=== PATIENT | male | born 1995 | race Caucasian/White ===

== ENCOUNTER → 2021-11-22 17:53 | Outpatient (CLI) | payer OTHER, SELFPAY ==
--- NOTE | 2021-11-22 17:55 | DI.RAD.S_ITS ---
PROCEDURE: XR CHEST 2V INDICATIONS: pain on inspiration TECHNIQUE: 2 views of the chest were acquired. COMPARISON: None. FINDINGS: Surgical changes and devices: None. Lungs and pleura: Lungs are clear. No pleural effusions. Moderate-sized right-sided pneumothorax measuring up to 4.6 centimeters Mediastinum: Mediastinal contours are normal. There is slight leftward deviation mediastinum suggesting pneumothorax may be under tension. Heart size is normal. Bones and chest wall: No suspicious bony abnormalities. Soft tissues appear unremarkable. IMPRESSION: Moderate-sized right-sided pneumothorax with possible tension. Findings discussed with Dr. Parra could the emergency department. Dr. Parra contacted the patient directly and patient will proceed immediately to the emergency department for clinical evaluation. Dictated by: Rox Graff MD, PhD on 11/22/2021 at 18:57 Approved by: Rox Graff MD, PhD on 11/22/2021 at 19:09
== END ==
PROVIDERS: PCP Internal Medicine; Referring Provider Physician Assistant; Visit Provider Physician Assistant
DX: J93.9 Pneumothorax, unspecified (principal); R07.1 Chest pain on breathing
CPT/HCPCS: 71046

== ENCOUNTER 2021-11-22 19:17 | Inpatient (IN) | payer OTHER, SELFPAY ==
[2021-11-22] VITALS (15 sets, daily range): BP systolic 100–131; BP diastolic 50–85; PULSE 73–99; RESP 16–35; TEMP 36.9; O2SAT 96–100; BMI 18.9; BMI 19.1
--- NOTE | 2021-11-22 19:27 | ED_ITS ---
HPI - SOB/Dyspnea General Chief Complaint: Upper Respiratory Symptoms Stated Complaint: Collapsed Lung Time Seen by Provider: 11/22/21 19:24 Source: patient Mode of arrival: Ambulatory History of Present Illness HPI Narrative: Patient is a 26-year-old male who presents with spontaneous pneumothorax on the right sent from the walk-in clinic. 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 He had a chest x-ray done at walk-in clinic which did show moderate pneumothorax with tension. He has some pain but no significant shortness of breath his oxygen is at 99% here in the ED. He is not tachycardic. He denies any smoking or vaping. Related Data Home Medications Medication Instructions Recorded Confirmed No Known Home Medications 11/22/21 11/22/21 Allergies Allergy/AdvReac Type Severity Reaction Status Date / Time No Known Drug Allergies Allergy Verified 11/22/21 19:25 Review of Systems Review of Systems Narrative: GENERAL: Denies chills, fatigue, malaise, fever, sweats, travel HEENT: Denies sinus pain, ear pain, sore throat, difficulty swallowing, neck pain RESPIRATORY: See HPI CARDIOVASCULAR: Denies chest pain, palpitations, orthopnea, edema GASTROINTESTINAL: Denies nausea, vomiting, abdominal pain, diarrhea, constipation, melena. : Denies dysuria, frequency, incontinence, hematuria, urinary retention, flank pain. MUSCULOSKELETAL: Denies weakness, joint pain, or bony pain SKIN: No rash, no erythema, no pruritus NEUROLOGIC: Denies weakness, dizziness, headache, numbness, change in speech, confusion PSYCHIATRIC: No concerning psychosocial issues. 12 point review of systems is negative except for those stated above and HPI Patient History Social History Smoking Status: Never smoker Smoking Status: Never smoker Substance Use Type: does not use Exam Initial Vital Signs Initial Vital Signs: Vital Signs Pulse Rate 93 H 11/22/21 19:25 Respiratory Rate 18 11/22/21 19:25 Blood Pressure 128/85 11/22/21 19:25 Pulse Oximetry 96 11/22/21 19:25 Oxygen Delivery Method 11/22/21 19:25 GENERAL: Well-appearing 26-year-old male and in no acute distress. HEENT: Head atraumatic,EOMI, pupils reactive, face symmetric, moist mucous membranes CARDIOVASCULAR: Regular rate and rhythm without murmurs, rubs or gallops. RESPIRATORY: Decreased breath sounds on right no respiratory distress ABDOMEN: Soft, nontender. Normoactive bowel sounds all 4 quadrants. No guarding or rebound. EXTREMITIES: Normal range of motion, no clubbing or edema. Neurovascularly intact NEUROLOGICAL: Alert and oriented x4.Normal gait and speech. SKIN: Warm, dry, no laceration, no petechiae, no rashes or lesions. Procedures Chest Tube Chest Tube 1: Chest Tube Location: right and anterior axillary line Chest Tube Prep: Yes sterile drapes applied and other Local Anesthetic: lidocaine 1% Amount of anesthesia used (mL): 6 Incision Made With: #10 blade Post Procedure: sutured to skin and sterile dressing applied Tube Drainage: none Post Procedure CXR?: Yes Patient Tolerated Procedure: Yes Course Orders Ordered: ED Orders 11/22/21 19:28 COVID19 -Nasal RAPID/Pre-Proc Stat 11/22/21 19:34 CBC Auto Diff [Complete Blood Count AUTO DIFF] Stat CMP [Comprehensive Metabolic Panel] Stat 11/22/21 20:11 Chest [XR chest 1V] Stat Discontinued Medications Lidocaine HCl (Lidocaine 1% (Pf)) 4 ml INJ NOW ONE Stop: 11/22/21 20:20 Last Admin: 11/22/21 20:00 Dose: 4 ml Documented By: ERWIN Morphine Sulfate (Morphine 2 Mg/Ml Inj) 2 mg IV NOW ONE Stop: 11/22/21 20:19 Last Admin: 11/22/21 20:27 Dose: 2 mg Documented By: RL Propofol (Propofol 200 Mg/20 Ml Vial) 60 mg 1 mg/kg (60 mg) IV NOW ONE Stop: 11/22/21 19:29 Last Admin: 11/22/21 19:59 Dose: 60 mg Documented By: RL Vital Signs Vital signs: Vital Signs - 8 hr 11/22/21 19:25 11/22/21 19:25 11/22/21 19:30 Pulse Rate 93 H 92 H 98 H Respiratory Rate 18 17 Blood Pressure 128/85 Pulse Oximetry 96 99 97 Oxygen Delivery Method Room Air 11/22/21 19:35 11/22/21 19:40 11/22/21 19:45 Pulse Rate 97 H 94 H 99 H Respiratory Rate 23 16 35 H Blood Pressure Pulse Oximetry 97 99 99 Oxygen Delivery Method 11/22/21 19:50 11/22/21 19:51 11/22/21 19:51 Pulse Rate 94 H 98 H Respiratory Rate 25 H 20 Blood Pressure 128/71 Pulse Oximetry 99 99 Oxygen Delivery Method 11/22/21 20:24 11/22/21 19:55 11/22/21 19:55 Pulse Rate 78 96 H Respiratory Rate 18 27 H Blood Pressure 126/74 Pulse Oximetry 100 Oxygen Delivery Method 11/22/21 20:00 11/22/21 20:00 11/22/21 20:05 Pulse Rate 92 H Respiratory Rate 24 Blood Pressure 100/50 L 104/64 Pulse Oximetry 100 Oxygen Delivery Method 11/22/21 20:05 11/22/21 20:10 11/22/21 20:10 Pulse Rate 80 81 Respiratory Rate 21 20 Blood Pressure 112/69 Pulse Oximetry 99 99 Oxygen Delivery Method 11/22/21 20:15 11/22/21 20:15 11/22/21 20:20 Pulse Rate 82 Respiratory Rate 20 Blood Pressure 119/72 129/77 Pulse Oximetry 97 Oxygen Delivery Method 11/22/21 20:20 Pulse Rate 81 Respiratory Rate 31 H Blood Pressure Pulse Oximetry 97 Oxygen Delivery Method MDM - SOB/Dyspnea Lab Data Result diagrams: 11/22/21 19:34 11/22/21 19:34 Labs: Lab Results 11/22/21 11/22/21 11/22/21 Range/Units 19:28 19:34 19:34 WBC 8.3 (4.5-11.0) X10^3/uL RBC 4.58 (4.5-5.9) X10^6/uL Hgb 14.4 (13.5-17.5) g/dL Hct 41.6 (41-53) % MCV 90.9 (80-100) fL MCH 31.3 (26-34) PG MCHC 34.5 (30-36) % RDW 12.6 (11.6-14.8) % Plt Count 219 (150-400) X10^3/uL Neut % (Auto) 62.4 (50-75) % Lymph % (Auto) 31.1 (25-40) % [place] % (Auto) 4.8 (3-14) % Eos % (Auto) 1.3 L (2-4) % Baso % (Auto) 0.4 (0-2) % Neut # (Auto) 5200 (3944-7340) /uL Lymph # (Auto) 2600 (6873-2088) /uL [place] # (Auto) 400 (0-900) /uL Eos # (Auto) 100 (0-450) /uL Baso # (Auto) 0 (0-100) /uL Sodium 140 (137-145) mmol/L Potassium 3.5 (3.4-5.1) mmol/L Chloride 105 (98-107) mmol/L Carbon Dioxide 27 (22-32) mmol/L BUN 14 (9-20) mg/dL Creatinine 0.91 (0.66-1.25) mg/dL Estimated GFR > 60 (>60) mL/min BUN/Creatinine Ratio 15.4 (6-22) Glucose 122 H (70-100) mg/dL Calcium 8.9 (8.4-10.2) mg/dL Total Bilirubin 0.7 (0.2-1.3) mg/dL AST 26 (17-59) IU/L ALT 21 (<50) IU/L Alkaline Phosphatase 46 (38-126) U/L Total Protein 8.0 (6.3-8.2) g/dL Albumin 4.7 (3.5-5.0) g/dL Globulin 3.3 (1.7-4.1) g/dL Albumin/Globulin Ratio 1.4 (1.0-2.8) SARS-CoV-2 (PCR) Negative (Negative) Imaging Data Chest x-ray: Radiologist's Impression: XRay Report Signed Patient: Dc Alves MR#: [id number] : 1995 Acct:[id number] Age/Sex: 26 / M Date of Service: 11/22/21 Loc: 90D-1 Accession Number: [id number] ?? Procedure: XR chest 1V Ordering Provider: Dia Parra D.O. PROCEDURE:? XR CHEST 1V ? INDICATIONS:? chest tube ? TECHNIQUE:? One view of the chest was acquired.? ? COMPARISON:? [facility], , XR CHEST 2V, 11/22/2021, 17:45. ? FINDINGS:? ? Surgical changes and devices:? There is interval placement a right pigtail pleural catheter with the tip demonstrated medially in the right lung base. ? Lungs and pleura:? There is interval decrease in size of the previously visualized right pneumothorax with a small to moderate residual pneumothorax identified.? There is decreased inferior displacement of the right hemidiaphragm.? Left lung is paul r.? No pleural effusions. ? Mediastinum:? There is decreased leftward shift of the mediastinum.? Heart size is normal.? ? Bones and chest wall:? No suspicious bony lesions.? Overlying soft tissues kylah ear unremarkable.? ? IMPRESSION:? ? 1. Interval placement of a right pleural catheter with decrease in size a residual small to moderate right pneumothorax.? There is decreased mediastinal shift and d ecreased diaphragmatic depression compatible with decreased tension. ? ? Dictated by: Miller Gibbs M.D. on 11/22/2021 at 20:35 ? ? [facility] Narrative Medical decision making narrative: The patient overall appears well. He is minimally symptomatic. Vitals are stable. Dr. Kaba updated patient's symptoms test results agrees with ac catheter placement Ac catheter is easily placed. There is resolution of tension but still some pneumothorax. He remains hemodynamically stable Discharge Plan Departure Patient Disposition: Admitted as Observation Clinical Impression: Pneumothorax Admit Date/Time: 11/22/21 20:40 Admit Provider: Christopher Kaba
--- NOTE | 2021-11-22 19:42 | PC.NURSE ---
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 Went to [facility] for evaluation and left prior to results of chest xray. Patient reports pain at rest with normal breathing is tolerable. Breath sounds on right side is diminished.
[2021-11-22 19:54] LABS: Add Manual Diff / Slide Review NO; Basophils Absolute Auto 0 /uL (0-100); Basophils Percent Auto 0.4 % (0-2); Eosinophils Absolute Auto 100 /uL (0-450); Eosinophils Percent Auto 1.3 % (2-4); Hematocrit 41.6 % (41-53); Hemoglobin 14.4 g/dL (13.5-17.5); Lymphocytes Absolute Auto 2600 /uL (1100-4500); Lymphocytes Percent Auto 31.1 % (25-40); Mean Corpuscular HGB Conc 34.5 % (30-36); Mean Corpuscular Hemoglobin 31.3 PG (26-34); Mean Corpuscular Volume 90.9 fL (80-100); Monocytes Absolute Auto 400 /uL (0-900); Monocytes Percent Auto 4.8 % (3-14); Neutrophils Absolute Auto 5200 /uL (1500-7000); Neutrophils Percent Auto 62.4 % (50-75); Platelet Count 219 X10^3/uL (150-400); Red Blood Cell Count 4.58 X10^6/uL (4.5-5.9); Red Cell Distribution Width 12.6 % (11.6-14.8); White Blood Cell Count 8.3 X10^3/uL (4.5-11.0)
[2021-11-22] MEDS: propofoL 200 MG/20 ML VIAL 60 MG IV (19:59)
[2021-11-22 20:00] LABS: Alanine Aminotransferase 21 IU/L (<50); Albumin 4.7 g/dL (3.5-5.0); Albumin Globulin Ratio 1.4 (1.0-2.8); Alkaline Phosphatase 46 U/L (38-126); Aspartate Aminotransferase 26 IU/L (17-59); BUN Creatinine Ratio 15.4 (6-22); Bilirubin Total 0.7 mg/dL (0.2-1.3); Blood Urea Nitrogen 14 mg/dL (9-20); Calcium 8.9 mg/dL (8.4-10.2); Carbon Dioxide 27 mmol/L (22-32); Chloride 105 mmol/L (98-107); Estimated Glomerular Filt Rate > 60 mL/min (>60); Globulin 3.3 g/dL (1.7-4.1); Glucose 122 mg/dL (70-100); HEMOLYSIS < 15 (0-50); Potassium 3.5 mmol/L (3.4-5.1); Sodium 140 mmol/L (137-145)
[2021-11-22] MEDS: LIDOCAINE 1% (PF) 4 ML INJ (20:00)
[2021-11-22] MEDS: LIDOCAINE 1% (PF) 2 ML (20:00)
--- NOTE | 2021-11-22 20:11 | DI.RAD.S_ITS ---
PROCEDURE: XR CHEST 1V INDICATIONS: chest tube TECHNIQUE: One view of the chest was acquired. COMPARISON: [facility], CR, XR CHEST 2V, 11/22/2021, 17:45. FINDINGS: Surgical changes and devices: There is interval placement a right pigtail pleural catheter with the tip demonstrated medially in the right lung base. Lungs and pleura: There is interval decrease in size of the previously visualized right pneumothorax with a small to moderate residual pneumothorax identified. There is decreased inferior displacement of the right hemidiaphragm. Left lung is clear. No pleural effusions. Mediastinum: There is decreased leftward shift of the mediastinum. Heart size is normal. Bones and chest wall: No suspicious bony lesions. Overlying soft tissues appear unremarkable. IMPRESSION: 1. Interval placement of a right pleural catheter with decrease in size a residual small to moderate right pneumothorax. There is decreased mediastinal shift and decreased diaphragmatic depression compatible with decreased tension. Dictated by: Miller Gibbs M.D. on 11/22/2021 at 20:35 Approved by: Miller Gibbs M.D. on 11/22/2021 at 20:38
[2021-11-22 20:16] LABS: COVID19 -Nasal RAPID Negative (Negative)
[2021-11-22] MEDS: MORPHINE 2 MG/ML INJ IV (20:27)
[2021-11-23] VITALS (7 sets, daily range): BP systolic 110–122; BP diastolic 64–76; PULSE 60–75; RESP 14–16; TEMP 36.2–36.9; O2SAT 96–98
--- NOTE | 2021-11-23 06:00 | DI.RAD.S_ITS ---
PROCEDURE: XR CHEST 1V INDICATIONS: Chest Tube placement/progress TECHNIQUE: One view of the chest was acquired. COMPARISON: [facility], CR, XR CHEST 1V, 11/22/2021, 20:12. [facility], CR, XR CHEST 2V, 11/22/2021, 17:45. FINDINGS: Surgical changes and devices: Right pigtail pleural drain with the tip at the lower thorax. Lungs and pleura: Lungs appear clear. Minimal atelectasis in the right lung. There is a moderate-sized right pneumothorax measuring 4.1 cm at the apex (previously 4.5 cm yesterday evening and 6 cm on 11/22 at 1745 hours). No pleural effusion is identified. Mediastinum: Mediastinal contours appear unchanged. Slight leftward shift of the mediastinal structures. Heart size is normal. Bones and chest wall: No suspicious bony lesions. Overlying soft tissues appear unremarkable. IMPRESSION: Moderate-sized right pneumothorax appears slightly decreased in size. Right pleural drain is unchanged. No significant discrepancy with the overnight preliminary interpretation. Dictated by: Cliff Paul M.D. on 11/23/2021 at 7:19 Approved by: Cliff Paul M.D. on 11/23/2021 at 7:23
--- NOTE | 2021-11-23 10:25 | CM.DANOTE ---
Initial Discharge Plan Assessment: Case received, EMR reviewed and met with patient and his mother Celia. Introduced self and role. 26 year old male admitted yesterday evening to care of hospitalist team. 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 His xray at walk-in clinic showed moderate pneumothorax with tension. Upon admission to a right pleural catheter was inserted. Patient is pleasant, in no obvious distress, a/o, his mother sitting in chair in room. Patient and his mother live together in [place]. He usually is independent in all ADLs, drives and holds a job at [employer]. P: When medically stable, upon discharge, patient with his previous living situation in place. Care management will continue to fall. 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 No History Provided By Patient Has Patient been admitted in last 30 No days? Prior Living Arrangements Apartment/Condo Household Members family Type of transporation used prior to Drives own vehicle admit Independent with ADL's Yes Is patient alert and oriented? Yes Caregiver for Another No Barriers to Discharge No Discharge Plan Home Transportation Arrangement Mother to transport home Whiteboard Updated in Patient Room with Yes name and ext. # of Cane Burner Review Status In Process Next Review Type Continued Stay Review
--- NOTE | 2021-11-23 10:59 | PC.NURSE ---
Ptalert and oriented in good spirits. Follows commands makes needs easily known. CT and oasis intact and patent. Pt offers no c/o or pain issues.
--- NOTE | 2021-11-23 11:57 | PM.HP.1 ---
History of Present Illness History of Present Illness Date Patient Seen: 11/23/21 Time Patient Seen: 10:00 Date of Onset of Symptoms: 11/22/21 Chief complaint: Collapsed Lung Narrative: Patient had onset of sharp pains or shortness of breath last evening. Seen in the emergency department with workup consistent with a spontaneous right pneumothorax. He reports he has not had an episode prior. No history of trauma. No history of vaping. And no other complaints. Patient History Family & Social History Social History: household members family Prior Living Arrangements Apartment/Condo Safety & Behavioral: Feels Safe in Current Yes Environment Been Physically Hurt or No Threatened By a Person Tobacco & Substance use: Smoking Status Never smoker alcohol intake never Substance Use Type does not use Meds Home Medications and Allergies Home Medications Medication Instructions Recorded Confirmed Type No Known Home Medications 11/22/21 11/23/21 History Allergies Allergy/AdvReac Type Severity Reaction Status Date / Time No Known Drug Allergies Allergy Verified 11/22/21 19:25 Review of Systems Review of Systems ROS: Yes All systems reviewed with the patient and are negative except as otherwise documented Exam Vital Signs (past 8 hours): - 11/23/21 05:50 11/23/21 08:00 11/23/21 09:26 Temperature 97.7 F 97.1 F L Pulse Rate 75 60 Respiratory Rate 16 16 Blood Pressure 110/76 111/70 Pulse Oximetry 98 97 97 Oxygen Delivery Method Room Air Oxygen Flow Rate 0 0 Oxygen Delivery Method Room Air Oxygen Flow Rate 0 Narrative 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 Cardio Rate: regular rate Rhythm: regular rhythm GI Inspection: normal to inspection Palpation: soft Skin General: no rashes or lesions noted and elasticity normal Hair: normal Neuro General: patient alert, patient awake and patient oriented x3 Cranial Nerves: hearing normal Cognition: normal cognition Extrem General: normal to inspection and no clubbing, cyanosis or edema Psych Appearance: grossly normal Affect: normal affect Attitude: cooperative Judgment: judgment good Objective Labs Result Diagrams: 11/22/21 19:34 11/22/21 19:34 Labs: Laboratory Results - last 24 hr 11/22/21 11/22/21 11/22/21 19:28 19:34 19:34 WBC 8.3 RBC 4.58 Hgb 14.4 Hct 41.6 MCV 90.9 MCH 31.3 MCHC 34.5 RDW 12.6 Plt Count 219 Neut % (Auto) 62.4 Lymph % (Auto) 31.1 [place] % (Auto) 4.8 Eos % (Auto) 1.3 L Baso % (Auto) 0.4 Neut # (Auto) 5200 Lymph # (Auto) 2600 [place] # (Auto) 400 Eos # (Auto) 100 Baso # (Auto) 0 Sodium 140 Potassium 3.5 Chloride 105 Carbon Dioxide 27 BUN 14 Creatinine 0.91 Estimated GFR > 60 BUN/Creatinine Ratio 15.4 Glucose 122 H Calcium 8.9 Total Bilirubin 0.7 AST 26 ALT 21 Alkaline Phosphatase 46 Total Protein 8.0 Albumin 4.7 Globulin 3.3 Albumin/Globulin Ratio 1.4 SARS-CoV-2 (PCR) Negative Assessment & Plan Assessment & Plan narrative: Impression: Spontaneous right pneumothorax. Chest tube placed in the ED. Still has small/moderate pneumothorax that is slightly smaller in size. Plan: No air leak on evaluation today. Will continue chest tube as is. Water seal in the a.m.. If no increase in size, will pull chest tube and observe a little longer prior to discharge. If it is larger tomorrow on water seal, we will reposition the existing tube versus placing a 2nd tube. COVID-19 COVID-19 status: Negative Time Spent With Patient Time with patient: 30 to 49 minutes with 50% spent counseling/coordinating care Critical Care time: I spent a total of [] minutes of critical care time on this patient's care today; this time is exclusive of procedural time.
[2021-11-23] MEDS: CELECOXIB 200 MG CAPSULE PO ×2 (13:05→20:15)
--- NOTE | 2021-11-24 06:00 | DI.RAD.S_ITS ---
PROCEDURE: XR CHEST 1V INDICATIONS: PTX. TECHNIQUE: One view of the chest was acquired. COMPARISON: [facility], CR, XR CHEST 1V, 11/23/2021, 6:09. FINDINGS: Surgical changes and devices: Right-sided pigtail pleural drain present. Lungs and pleura: Right apical pneumothorax now measures 3.6 cm to the thoracic apex, previously 4.1 cm Mediastinum: Mediastinal contours appear normal. Heart size is normal. Bones and chest wall: No suspicious bony lesions. Overlying soft tissues appear unremarkable. IMPRESSION: Slowly improving right pneumothorax. Stable right pigtail pleural drain Approved by: Dakota Sanford M.D. on 11/24/2021 at 8:35
[2021-11-24 08:00] VITALS: BP 112/69; PULSE 74; RESP 16; TEMP 36.7; O2SAT 99
[2021-11-24 08:57] VITALS: O2SAT 97
--- NOTE | 2021-11-24 10:27 | DI.RAD.S_ITS ---
PROCEDURE: XR CHEST 1V INDICATIONS: right chst tube removal TECHNIQUE: One view of the chest was acquired. COMPARISON: [facility], CR, XR CHEST 1V, 11/24/2021, 6:12. FINDINGS: Surgical changes and devices: Right-sided pleural drain and been removed in the interval. Lungs and pleura: Persistent but improved right-sided pneumothorax now measures 3.2 cm to the thoracic apex, previously 3.6 cm Mediastinum: Mediastinal contours appear normal. Heart size is normal. Bones and chest wall: No suspicious bony lesions. Overlying soft tissues appear unremarkable. IMPRESSION: Continued slow improvement of right apical pneumothorax status post pleural drain removal Approved by: Dakota Sanford M.D. on 11/24/2021 at 12:01
--- NOTE | 2021-11-24 10:31 | PM.PN.1 ---
Subjective Subjective Date Patient Seen: 11/24/21 Time Patient Seen: 10:31 Interval history: No problems over night Exam Vital Signs (past 8 hours): - 11/24/21 08:57 11/24/21 08:00 Temperature 98.1 F Pulse Rate 74 Respiratory Rate 16 Blood Pressure 112/69 Pulse Oximetry 97 99 Oxygen Delivery Method Room Air Oxygen Flow Rate 0 Oxygen Delivery Method Room Air Oxygen Flow Rate 0 Narrative Exam Narrative: repeat CXR is stable on water seal. Const General: comfortable Nutritional Appearance: thin HENMT Head: normocephalic and atraumatic Ears: hearing grossly normal bilaterally Eyes Sclera: sclerae normal Neck Neck: full ROM Chest Chest: normal inspection of the chest Other: tender at chest tube site. no airleak Resp Effort & Inspection: normal respiratory effort and able to speak in complete sentences Cardio Rate: regular rate Rhythm: regular rhythm GI Palpation: soft Back/Spine/Pelvis Back: normal to inspection Skin General: no rashes or lesions noted and elasticity normal Hair: normal Nails: normal Neuro General: patient alert, patient awake and patient oriented x3 Cognition: normal cognition Extrem General: full ROM Psych Appearance: grossly normal Mental Status: mental status grossly normal Judgment: judgment good Objective Labs Result Diagrams: 11/22/21 19:34 11/22/21 19:34 [facility] Social History household members: family Smoking Status: Never smoker alcohol intake: never Assessment & Plan Assessment & Plan narrative: CXR is improved. Still rim of PTX. I pulled the chest tube and lingered at the wall on suction to remove retained air. Plan: repeat CXR in 4 hours and discharge if stable. COVID-19 COVID-19 status: Negative Time Spent With Patient Critical Care time: I spent a total of [] minutes of critical care time on this patient's care today; this time is exclusive of procedural time.
[2021-11-24] MEDS: CELECOXIB 200 MG CAPSULE PO (11:30)
[2021-11-24 11:45] VITALS: BP 105/62; PULSE 70; RESP 15; TEMP 36.8; O2SAT 100
--- NOTE | 2021-11-24 13:17 | P.EN_ITS ---
Event Note Date Patient Seen: 11/24/21 Time Patient Seen: 13:17 Event Note (Rapid Response, Code, or fall): To whom it may concern; Dc Larson. Should be on light duty with a lifting restriction of 15 lbs until 12/08/2021 due to recent illness. And be off work from 11/23/21 until 11/25/21. [facility]; Dr. Rema Lawrence
--- NOTE | 2021-11-24 13:20 | PM.DS.1 ---
History of Present Illness History of Present Illness Date Patient Seen: 11/24/21 Time Patient Seen: 13:21 Chief complaint: Collapsed Lung Narrative: Patient had onset of sharp pains or shortness of breath last evening. Seen in the emergency department with workup consistent with a spontaneous right pneumothorax. He reports he has not had an episode prior. No history of trauma. No history of vaping. And no other complaints. Discharge Providers Provider Date of admission: 11/22/21 20:40 Discharge Date: 11/24/21 Primary care physician: Eliot Medrano MD Discharge provider: Mar Lawrence MD Summary Status at Discharge Cognitive/behavioral status at discharge: at baseline, oriented Functional status at discharge: independent ambulation Overall status at discharge: patient is progressing back to baseline Time Spent with Patient Time spent: Less than 30 minutes Exam Vital Signs (past 8 hours): - 11/24/21 08:57 11/24/21 08:00 11/24/21 11:45 Temperature 98.1 F 98.2 F Pulse Rate 74 70 Respiratory Rate 16 15 Blood Pressure 112/69 105/62 Pulse Oximetry 97 99 100 Oxygen Delivery Method Room Air Oxygen Flow Rate 0 0 Oxygen Delivery Method Room Air Oxygen Flow Rate 0 Narrative Exam Narrative: No clinical hypoxia or SOB. Repeat CXR following removal of chest tube shows decrease in thin PTX. Objective Labs Result Diagrams: 11/22/21 19:34 11/22/21 19:34 [facility] Social History household members: family Smoking Status: Never smoker alcohol intake: never Discharge Assessment & Plan Assessment and Plan Assessment: Spontaneous PTX. Incomplete response to chest tube likely due to chest tube position. Progressive resolution, no symptoms and confirmed stability on CXR. Plan of Treatment: Home with lifting restrictions and no contact sports for 2 and 4 weeks. Follow up 7-10 days with PCP for CXR. Discharge Plan Discharge Plan Patient Disposition: Home Provider Discharge Comment: Home anytime, CXR is stable. Please print event note for work Discharge orders & Medications Prescriptions: New celecoxib [Celebrex] 200 mg Capsule 200 mg PO BID Qty: 10 0RF oxycodone 5 mg Tablet 5 mg PO Q4HR PRN (Reason: Pain, Moderate (4-6)) Qty: 5 0RF Follow up/Referrals: Mar Lawrence MD [Physician] - Eliot Medrano MD [Primary Care Provider] - (Will need a CXR in 7-10 days for spontaneous PTX. Had a small rim of Pneumo after Chest tube pulled that was stable. Should be gone or down to milimeters on followup) Diet/Activity/Treatments Diet: Diet as Tolerated Activity: no contact sports for 4 weeks, no lifting greater than 15 lbs for 2 weeks Skin/Wound/Dressing Care Report to your healthcare provider any signs of infection, such as:: chills, fever and increased pain Dressing: replace dressing in 48 hrs with bandaid if needed Discharge Data Primary Care Provider: Eliot Medrano Attending Provider: Christopher Kaba
--- NOTE | 2021-11-24 15:42 | PC.NURSE ---
Pt dressed and ready for discharge home. Pt to transport self via pov. No Iv and no tele. Pt does not have medications at pharmacy or items in the safe. Reviewed discharge instructions including lifting and physical activity restrictions, when to follow up, and medications to continue. Provided new medication education and stroke education. Pt taken out by [employer] with all belongings via wheelchair.
== END 2021-11-24 15:46 | disposition home or self-care (01) | DRG 201 ==
LOC: ED 19:24 → AC 20:41
PROVIDERS: Admitting Provider Surgery; Emergency Provider Emergency Medicine; PCP Internal Medicine; Referring Provider Emergency Medicine; Visit Provider Surgery
DX: J93.11 Primary spontaneous pneumothorax (principal); Z20.822 Contact with and (suspected) exposure to COVID-19
CPT/HCPCS: 32551; 36415; 71045; 80053; 85025; 87635; 94760; 94762; 96374; 99218; 99238; 99284; 99285; C9803; G0378; J2270; J2704